=== PATIENT | female | born 1960 | race Caucasian/White ===

== ENCOUNTER → 2017-03-03 | Outpatient (CLI) | payer OTHER | LOC: FIMAGING 11:15 | PROVIDERS: ATTEND Internal Medicine | DX: Z13.820 Encounter for screening for osteoporosis (principal); M85.80 Other specified disorders of bone density and structure, unspecified site; Z98.1 Arthrodesis status; Z96.641 Presence of right artificial hip joint ==

== ENCOUNTER → 2018-07-15 | Outpatient (CLI) | payer OTHER | LOC: FIMAGING 10:30 | PROVIDERS: ATTEND Internal Medicine | DX: M24.842 Other specific joint derangements of left hand, not elsewhere classified (principal); M19.042 Primary osteoarthritis, left hand; M70.71 Other bursitis of hip, right hip; M76.01 Gluteal tendinitis, right hip; Z96.641 Presence of right artificial hip joint ==